=== PATIENT | male | born 1990 | race Caucasian/White ===

== ENCOUNTER 2023-08-11 07:48 | Outpatient (CLI) | payer BC, OTHER | END 2023-08-11 07:49 | disposition home or self-care (01) | LOC: BICMRI 07:48 | PROVIDERS: ATTEND Family Medicine | DX: M50.122 Cervical disc disorder at C5-C6 level with radiculopathy (principal); M50.123 Cervical disc disorder at C6-C7 level with radiculopathy | CPT/HCPCS: 72141 ==